=== PATIENT | female | born 1995 | race Caucasian/White ===

== ENCOUNTER → 2020-07-20 10:50 | Outpatient (CLI) | payer OTHER, MEDICAID, SELFPAY | PROVIDERS: Visit Provider Nurse Practitioner | DX: R30.0 Dysuria (principal); R10.9 Unspecified abdominal pain; J02.9 Acute pharyngitis, unspecified | CPT/HCPCS: 87070; 87086 ==

== ENCOUNTER 2020-07-20 12:48 | Emergency (ER) | payer OTHER, MEDICAID, SELFPAY ==
[2020-07-20] VITALS (11 sets, daily range): BP systolic 106–126; BP diastolic 54–66; PULSE 58–109; RESP 18; TEMP 36.9; O2SAT 97–100; BMI 20.5
--- NOTE | 2020-07-20 13:01 | ED_ITS ---
HPI - Abdominal Pain <GAVIOTA Dawson - Last Filed: 07/20/20 16:42> General Chief Complaint: Abdominal Pain Stated Complaint: Left side abd pain, cold symptoms, vomited Time Seen by Provider: 07/20/20 12:51 Source: patient Mode of arrival: Ambulatory Limitations: no limitations History of Present Illness HPI narrative: This is a 25 year female, former smoker, who has history of ov valdemar cyst and ruptured during and migraine headache presents to ED with chief complain of left upper and lower quadrant pain with nausea and vomiting. Patient reports pain started on her left upper quadrant 4 days ago now it has radiated down to lower abdomen. She reports pain as dull cramps when he started but now is progressively pressure-like. She smoke marijuana to is done nausea today. Patient reports pain increases by pressure and touching. She has been nauseated and had stomach acid mixed emesis at 4:00 a.m. after head half of sausage burrito at [facility]. Patient was sweaty and had chills last night. Patient reports urinary urgency and had to actually push to urinate last couple of days. Appears to be pink in color. LMP 2 weeks ago. Patient denies unusual vaginal discharge and is not concerned for STIs. full-term delivery and last delivery with 2 years ago. Related Data Home Medications Medication Instructions Recorded Confirmed methylphenidate HCl 18 mg 18 mg PO .prn tab 07/20/20 07/20/20 tablet,extended release 24 hr Previous Rx's Medication Instructions Recorded hydrocodone-acetaminophen [[place]] 1 tab PO Q8H PRN #10 tab 07/20/20 ondansetron 4 mg PO Q8H PRN #7 tab 07/20/20 ondansetron 4 mg disintegrating 4 mg PO Q6H PRN #14 tab 07/20/20 tablet Allergies Allergy/AdvReac Type Severity Reaction Status Date / Time diphenhydramine AdvReac Intermediate Verified 07/20/20 11:07 [From Ya] Review of Systems <GAVIOTA Dawson - Last Filed: 07/20/20 16:42> Review of Systems Narrative: General: HPI HEENT: Denies sinus pain, ear pain, sore throat, difficulty swallowing, dizziness. Respiratory: Denies dyspnea, cough, wheezing, hemoptysis, sputum. Cardiovascular: Denies chest pain, palpitations, orthopnea, edema. Gastrointestinal: CHP a : See HPI Musculoskeletal: Denies weakness, joint pain or bony pain. Skin: Denies rash, skin lesions, or other. Neurologic: Denies weakness, headache, numbness, change in speech, confusion, seizures, incoordination. Psychiatric: No concerning psychosocial issues. 12-point review of systems is negative except for those stated above. Patient History <GAVIOTA Dawson - Last Filed: 07/20/20 16:42> Medical History (Updated 07/20/20 @ 14:54 by GAVIOTA Dawson) COVID-19 virus infection (Acute) Migraine headache (Acute) Ovarian cyst (Acute) Ruptured ovarian cyst (Acute) Surgical History History of (Acute) Social History Smoking Status: Former smoker Smoking Status: Former smoker Substance Use Type: marijuana Exam <GAVIOTA Dawson - Last Filed: 07/20/20 16:42> Narrative Exam Narrative: GEN: Alert, oriented x 3 and nourished, and moderate distress from pain, in tears during exam. Head: Normal cephalic, atraumatic. No scalp or temporal tenderness, palpable mass or rash. EYES: Pupils are equal, round, and reactive to light and accommodation. Extraocular muscles are intact bilaterally. There is no subconjunctival hemorrhage, exudate and sclera non-icteric. ENT: Hearing grossly intact. Nose without bleeding, purulent discharge or deviation. Mucous membrane moist, no mucosal lesion. Throat without erythema, tonsillar hypertrophy or exudate. Uvula in midline, airway patent. Neck: Trachea in midline. No JVD, non-tender without lymphadenopathy. No masses or thyroid megaly. Supple, non-tender and no meningeal signs. CARDIAC: Normal regular rate and rhythm without murmurs, gallops, or rubs. No chest wall tenderness. No peripheral edema, cyanosis or pallor. Capillary refill is less than 2 seconds. RESPIRATORY: Lungs are clear to auscultate bilaterally. No cough, wheezes, rales, or rhonchi. No stridor, respiratory distress, increase work of br eathing, or accessary muscle used. ABD: Abdomen soft and non-distended. Exquisite tenderness to palpate in left upper and lower quadrant, right upper quadrant. Bowel sounds are normal in all 4 quadrants. There is no palpable masses or organomegaly. EXT: Full painless ROM of all extremities with no loss of sensation, strength, effusion or edema. SKIN: Warm, dry, normal color for patient. No erythema, lesions or rash over visible areas. BACK: Nontender without deformity or crepitance. Left flank pain to percuss NEUROLOGICAL: Alert and oriented to place, time and person. Sensation and motor function intact bilaterally. No facial droops, dysphasia. PSYCHIATRIC: Good judgement and reason, without hallucinations, abnormal affect or abnormal behaviors during the examination. Patient is not suicidal. Initial Vital Signs Initial Vital Signs: Vital Signs Temperature 98.4 F 07/20/20 12:54 Pulse Rate 92 H 07/20/20 12:54 Respiratory Rate 18 07/20/20 12:54 Blood Pressure 126/62 07/20/20 12:54 Pulse Oximetry 98 07/20/20 12:54 <Laura Seymour DO - Last Filed: 07/20/20 17:54> Initial Vital Signs Initial Vital Signs: Vital Signs Temperature 98.4 F 07/20/20 12:54 Pulse Rate 92 H 07/20/20 12:54 Respiratory Rate 18 07/20/20 12:54 Blood Pressure 126/62 07/20/20 12:54 Pulse Oximetry 98 07/20/20 12:54 Scores <GAVIOTA Dawson - Last Filed: 07/20/20 16:42> GCS [place] coma scale eye opening: Spontaneous [place] coma scale verbal response: Orientated [place] coma scale motor response: Obey commands [place] coma scale total score: 15 qSOFA Altered Mental Status (GCS <15): No Respiratory rate greater than/equal to 22: No Systolic blood pressure less than or equal to 100: No qSOFA Total: 0 0-1 Not High Risk 1-3 High risk Course <GAVIOTA Dawson - Last Filed: 07/20/20 16:42> Orders Ordered: ED Orders 07/20/20 12:56 Complete Blood Count AUTO DIFF Stat Comprehensive Metabolic Panel Stat Lactate (Lactic Acid) Stat Lipase Stat 07/20/20 13:28 CT abdomen pelvis w con Stat Discontinued Medications Hydromorphone HCl (Dilaudid) 0.5 mg IV NOW ONE Stop: 07/20/20 14:35 Last Admin: 07/20/20 14:38 Dose: 0.5 mg Documented by: SARA Sodium Chloride (Normal Saline 0.9%) 1,000 mls @ 1,000 mls/hr IV BOLUS ONE Stop: 07/20/20 13:57 Last Infusion: 07/20/20 13:58 Dose: 0 mls/hr Documented by: Admin: 07/20/20 13:02 Dose: 1,000 mls/hr Documented by: SARA Ketorolac Tromethamine (Toradol) 15 mg IV NOW ONE Stop: 07/20/20 13:29 Last Admin: 07/20/20 13:35 Dose: 15 mg Documented by: SARA Ondansetron HCl (Zofran) 4 mg IV NOW ONE Stop: 07/20/20 12:59 Last Admin: 07/20/20 13:02 Dose: 4 mg Documented by: SARA Ondansetron HCl (Zofran) 4 mg IV NOW ONE Stop: 07/20/20 13:55 Last Admin: 07/20/20 13:58 Dose: 4 mg Documented by: SARA Pantoprazole Sodium (Protonix) 40 mg IV NOW ONE Stop: 07/20/20 12:59 Last Admin: 07/20/20 13:02 Dose: 40 mg Documented by: SARA Reevaluation(s) Reevaluation #1: Patient reports pain still remains at 10/10 after the IV Toradol. Discussed CT abd/pelvis findings of ruptured ovarian cyst which is likely a cause of patient's abdominal pain. Patient has a ride and will treat patient's pain with small dose of Dilaudid. Time: 14:35 Reevaluation #2: Patient reports pain much improved and nausea subsided when pain managed well after the Dilaudid medication. Time: 14:50 Consultations Consultation #1: Dr. Rey ([facility]) called to inform that patient has ruptured left-sided ovarian cyst and a dilated left gonadal vein with left paraovarian varicosities suggesting pelvic venous congestion. Time: 14:25 Vital Signs Vital signs: Vital Signs - 8 hr 07/20/20 12:54 07/20/20 12:56 07/20/20 13:00 Temperature 98.4 F Pulse Rate 92 H 88 109 H Respiratory Rate 18 Blood Pressure 126/62 Pulse Oximetry 98 99 99 07/20/20 13:30 07/20/20 13:42 07/20/20 14:00 Temperature 98.4 F Pulse Rate 73 78 81 Respiratory Rate Blood Pressure 114/54 L Pulse Oximetry 98 100 100 07/20/20 14:30 07/20/20 14:43 07/20/20 14:44 Temperature Pulse Rate 73 81 83 Respiratory Rate Blood Pressure 116/66 Pulse Oximetry 99 98 97 07/20/20 15:00 07/20/20 15:01 Temperature Pulse Rate 58 L 64 Respiratory Rate Blood Pressure 106/57 L Pulse Oximetry 98 98 <Laura Seymour, - Last Filed: 07/20/20 17:54> Orders Ordered: ED Orders 07/20/20 12:56 Complete Blood Count AUTO DIFF Stat Comprehensive Metabolic Panel Stat Lactate (Lactic Acid) Stat Lipase Stat 07/20/20 13:28 CT abdomen pelvis w con Stat Discontinued Medications Hydromorphone HCl (Dilaudid) 0.5 mg IV NOW ONE Stop: 07/20/20 14:35 Last Admin: 07/20/20 14:38 Dose: 0.5 mg Documented by: SARA Sodium Chloride (Normal Saline 0.9%) 1,000 mls @ 1,000 mls/hr IV BOLUS ONE Stop: 07/20/20 13:57 Last Infusion: 07/20/20 13:58 Dose: 0 mls/hr Documented by: Admin: 07/20/20 13:02 Dose: 1,000 mls/hr Documented by: SARA Ketorolac Tromethamine (Toradol) 15 mg IV NOW ONE Stop: 07/20/20 13:29 Last Admin: 07/20/20 13:35 Dose: 15 mg Documented by: SARA Ondansetron HCl (Zofran) 4 mg IV NOW ONE Stop: 07/20/20 12:59 Last Admin: 07/20/20 13:02 Dose: 4 mg Documented by: SARA Ondansetron HCl (Zofran) 4 mg IV NOW ONE Stop: 07/20/20 13:55 Last Admin: 07/20/20 13:58 Dose: 4 mg Documented by: SARA Pantoprazole Sodium (Protonix) 40 mg IV NOW ONE Stop: 07/20/20 12:59 Last Admin: 07/20/20 13:02 Dose: 40 mg Documented by: SARA Vital Signs Vital signs: Vital Signs - 8 hr 07/20/20 12:54 07/20/20 12:56 07/20/20 13:00 Temperature 98.4 F Pulse Rate 92 H 88 109 H Respiratory Rate 18 Blood Pressure 126/62 Pulse Oximetry 98 99 99 07/20/20 13:30 07/20/20 13:42 07/20/20 14:00 Temperature 98.4 F Pulse Rate 73 78 81 Respiratory Rate Blood Pressure 114/54 L Pulse Oximetry 98 100 100 07/20/20 14:30 07/20/20 14:43 07/20/20 14:44 Temperature Pulse Rate 73 81 83 Respiratory Rate Blood Pressure 116/66 Pulse Oximetry 99 98 97 07/20/20 15:00 07/20/20 15:01 Temperature Pulse Rate 58 L 64 Respiratory Rate Blood Pressure 106/57 L Pulse Oximetry 98 98 MDM - Abdominal Pain <GAVIOTA Dawson - Last Filed: 07/20/20 16:42> Differential Diagnosis Differential diagnosis: Likely calculus of kidney, diverticulitis, endometriosis, pancreatitis, small bowel obstruction and other (Ovarian cyst, ovarian torsion, pyelonephritis,) Medical Records Attestation: I reviewed the patient's medical records. Lab Data Attestation: I reviewed the patient's lab results. Result diagrams: 07/20/20 12:56 07/20/20 12:56 Labs: Lab Results 07/20/20 07/20/20 07/20/20 Range/Units 12:56 12:56 12:56 WBC 12.2 H (4.5-11.0) X10^3/uL RBC 4.58 (4.0-5.2) X10^6/uL Hgb 12.6 (12.0-16.0) g/dL Hct 38.4 (36-46) % MCV 83.9 (80-100) fL MCH 27.6 (26-34) PG MCHC 32.9 (30-36) % RDW 14.7 (11.6-14.8) % Plt Count 404 H (150-400) X10^3/uL Neut % (Auto) 61.3 (50-75) % Lymph % (Auto) 26.5 (25-40) % [place] % (Auto) 6.8 (3-14) % Eos % (Auto) 4.7 H (2-4) % Baso % (Auto) 0.7 (0-2) % Neut # (Auto) 7500 H (1531-4046) /uL Lymph # (Auto) 3200 (4056-1655) /uL [place] # (Auto) 800 (0-900) /uL Eos # (Auto) 600 H (0-450) /uL Baso # (Auto) 100 (0-100) /uL Sodium 139 (137-145) mmol/L Potassium 3.9 (3.4-5.1) mmol/L Chloride 107 (98-107) mmol/L Carbon Dioxide 26 (22-32) mmol/L BUN 14 (7-17) mg/dL Creatinine 0.73 (0.52-1.04) mg/dL Estimated GFR > 60.0 (>60) mL/min BUN/Creatinine Ratio 19.2 (6-22) Glucose 112 H (70-100) mg/dL Lactate 1.3 (0.7-2.1) mmol/L Calcium 9.3 (8.4-10.2) mg/dL Total Bilirubin 0.6 (0.2-1.3) mg/dL AST 20 (14-36) IU/L ALT 13 (<35) IU/L Alkaline Phosphatase 63 (38-126) U/L Total Protein 7.4 (6.3-8.2) g/dL Albumin 4.3 (3.5-5.0) g/dL Globulin 3.1 (1.7-4.1) g/dL Albumin/Globulin Ratio 1.4 (1.0-2.8) Lipase 129 (23-300) U/L Point of care testing: Point of Care Testing Test Results Negative Urine Dip Bedside Urine Glucose Negative Bedside Urine Bilirubin - Negative Bedside Urine Ketone - Negative Urine Specific [place] 1.020 Bedside Urine Occult Blood - Negative Bedside Urine pH 7.5 Bedside Urine Protein - Negative Bedside Urine Urobilinogen - Negative Bedside Urine Nitrite - Negative Bedside Urine Leukocytes - Negative Esterase Imaging Data CT scan - abdomen/pelvis: Radiologist's Impression: [address] [address] [address] Scan Report Signed Patient: Sonia Mena#: [id number] : 1995Acct:[id number] Age/Sex: 25 / FDate of Service: 07/20/20 Loc: ED Accession Number: [id number] Procedure: CT abdomen pelvis w con Ordering Provider: Manpreet Donahue PROCEDURE: CT ABDOMEN PELVIS W CON INDICATIONS: bilateral upper abd and LLQ pain, n/v TECHNIQUE: After the administration of intravenous contrast, 5 mm thick sections acquired from the diaphragm to the symphysis. 5 mm coronal and sagittal reformats were acquired. For radiation dose reduction, the following was used: automated exposure control, adjustment of mA and/or kV according to patient size. COMPARISON: None. FINDINGS: Image quality: Excellent. ABDOMEN: Lung bases: Lung bases are clear. Heart size is normal. Solid organs: Liver is normal in size and enhancement. Gallbladder is contracted, within normal limits. Biliary system is non dilated. Pancreas enhances normally. Spleen is normal in size and enhancement. No adrenal nodules. Kidneys demonstrate normal size and enhancement, without hydronephrosis. Peritoneum and bowel: Bowel loops demonstrate normal wall thickness and caliber. No free fluid or air. Nodes and vessels: No retroperitoneal or mesenteric adenopathy by size criteria. Aorta and inferior vena cava are normal in size. Miscellaneous: No ventral hernias. PELVIS: Genitourinary: Bladder wall thickness is normal. Miscellaneous: No inguinal hernias or adenopathy. Ruptured enhancing left ovarian cyst with associated fluid in the pelvis. Fluid is greater than physiologic. Note is made of a dilated left gonadal vein indicating reflux with resultant left paraovarian varicosities. Bones: No suspicious bony lesions. No vertebral body compression fractures. IMPRESSION: 1. Left lower quadrant pain is likely related to a ruptured left ovarian cyst with associated probable mild pelvic hemorrhage. 2. Incidental note made of a dilated left gonadal vein with left paraovarian varicosities. This can be associated with a clinical syndrome of pelvic venous congestion Dictated by: Rolando Rey M.D. on 07/20/2020 at 14:15 Approved by: Rolando Rey M.D. on 07/20/2020 at 14:22 [facility] Narrative Medical decision making narrative: This is a 25 year female who has history of several ovarian cysts and 1 episode of rupture ovarian cyst presents to ED with severe left-sided abdominal pain which started 4 days ago with nausea and vomiting. Patient reports chills and sweating last night. Patient reports some urinary symptoms such as difficulty voiding and has to bear down to urinate with possible hematuria the other day. Physical exam appreciated exquisite discomfort in left upper and lower abdomen with left flank pain and right upper quadrant pain. Patient had active nausea and vomiting while in ED. she is afebrile with slight tachycardia of 92 but with normal blood pressure. Mild leukocytosis of 12.2 with very mild elevation in platelet of 404. Normal electrolytes. Stable H&H of 12.6/38.4. Normal lactate. Normal kidney function and liver function test. Urine test does not exhibit signs of infection and urine test was negative. Ultrasound test shows left-sided ovarian cyst rupture with associated probable mild pelvic hemorrhage. Incidental note of dilated left gonadal vein with left para ovarian varicosities which can be associated with clinical syndrome of pelvic venous congestion. Patient's pain and nausea was managed with IV fluid, Toradol and Zofran with very minimal improvement. Patient was medicated with Dilaudid 0.5mg IV and she felt much better on pain and nausea. Findings were discussed with patient and return precautions were discussed with patient. Patient advised to follow-up with primary care physician and possibly a referral to director selection and administration provider if ovarian cyst recurs or has chronic pelvic discomfort from pelvic congestion syndrome. Patient verbalized understanding and agreement with the treatment plan. <Laura Seymour, DO - Last Filed: 07/20/20 17:54> Lab Data Labs: Lab Results 07/20/20 07/20/20 07/20/20 Range/Units 12:56 12:56 12:56 WBC 12.2 H (4.5-11.0) X10^3/uL RBC 4.58 (4.0-5.2) X10^6/uL Hgb 12.6 (12.0-16.0) g/dL Hct 38.4 (36-46) % MCV 83.9 (80-100) fL MCH 27.6 (26-34) PG MCHC 32.9 (30-36) % RDW 14.7 (11.6-14.8) % Plt Count 404 H (150-400) X10^3/uL Neut % (Auto) 61.3 (50-75) % Lymph % (Auto) 26.5 (25-40) % [place] % (Auto) 6.8 (3-14) % Eos % (Auto) 4.7 H (2-4) % Baso % (Auto) 0.7 (0-2) % Neut # (Auto) 7500 H (0694-1834) /uL Lymph # (Auto) 3200 (2086-8892) /uL [place] # (Auto) 800 (0-900) /uL Eos # (Auto) 600 H (0-450) /uL Baso # (Auto) 100 (0-100) /uL Sodium 139 (137-145) mmol/L Potassium 3.9 (3.4-5.1) mmol/L Chloride 107 (98-107) mmol/L Carbon Dioxide 26 (22-32) mmol/L BUN 14 (7-17) mg/dL Creatinine 0.73 (0.52-1.04) mg/dL Estimated GFR > 60.0 (>60) mL/min BUN/Creatinine Ratio 19.2 (6-22) Glucose 112 H (70-100) mg/dL Lactate 1.3 (0.7-2.1) mmol/L Calcium 9.3 (8.4-10.2) mg/dL Total Bilirubin 0.6 (0.2-1.3) mg/dL AST 20 (14-36) IU/L ALT 13 (<35) IU/L Alkaline Phosphatase 63 (38-126) U/L Total Protein 7.4 (6.3-8.2) g/dL Albumin 4.3 (3.5-5.0) g/dL Globulin 3.1 (1.7-4.1) g/dL Albumin/Globulin Ratio 1.4 (1.0-2.8) Lipase 129 (23-300) U/L Point of care testing: Point of Care Testing Test Results Negative Urine Dip Bedside Urine Glucose Negative Bedside Urine Bilirubin - Negative Bedside Urine Ketone - Negative Urine Specific [place] 1.020 Bedside Urine Occult Blood - Negative Bedside Urine pH 7.5 Bedside Urine Protein - Negative Bedside Urine Urobilinogen - Negative Bedside Urine Nitrite - Negative Bedside Urine Leukocytes - Negative Esterase Discharge Plan Departure Patient Disposition: Home Clinical Impression: Ovarian cyst rupture Nausea & vomiting Qualifiers: Vomiting type: unspecified Vomiting Intractability: non-intractable Qualified Code(s): R11.2 - Nausea with vomiting, unspecified Discharge Date/Time: 07/20/20 15:30 Instructions: DI for Ovarian Cyst Activity Restrictions/Additional Instructions: You have been diagnosed with [left-sided ovarian cyst rupture and pelvic congestion her ultrasound test. Your blood count is stable today and vital signs are also stable. You were treated with anti nausea medication, pain medications and fluid in ED.]. What to do: *Take your medications as directed. Please take [id number] Tylenol and or Motrin as needed for discomfort. Tylenol 650 mg up to 3 to 4 times a day as needed for pain. Ibuprofen 400 mg to 600 mg up to 3 times a day as needed for pain with food to decrease GI irritation. You can take additional 1 tab of Nor co only for severe pain which is narcotic pain medication. This can cause drowsiness and constipation so please take precautions such as not driving, drinking alcohol, or operating heavy equipments. Please increase oral fluid intake and fiber in her diet. You can take [id number] stool softener to prevent constipation. You can take on then stone/Zofran as needed for nausea. These medications have been transmitted to [facility]. *Follow up with your primary care provider in 2-3 days, call for an appointment. Let them know you were seen in the ED and that we asked you to be seen in follow up. *Return to ED if you have any new, worsening, or concerning symptoms, such as [w orsening pain, chest pain, breathing difficulty, lightheadedness, feeling like faint, fever or any acute concerns]. Prescriptions: New hydrocodone-acetaminophen [[place]] 5-325 mg tablet 1 tab PO Q8H PRN (Reason: pain) Qty: 10 RF: 0 ondansetron 4 mg tablet,disintegrating 4 mg PO Q8H PRN (Reason: nausea and vomiting) Qty: 7 RF: 0 No Action methylphenidate HCl [[place]] 18 mg tablet extended release 24hr 18 mg PO .prn RF: 0 ondansetron 4 mg tablet,disintegrating 4 mg PO Q6H PRN (Reason: nausea and vomiting) Qty: 14 RF: 0 Referrals: [facility] Resources [Outside] Miscellaneous,Doctor, [Primary Care Provider] - <Laura Seymour DO - Last Filed: 07/20/20 17:54> Cosign ED Attending Cosignature Attestation: I was immediately available in the department for consultation. Documentation has been reviewed. I agree with assessment and plan.
[2020-07-20] MEDS: SODIUM CHLORIDE 0.9% 1,000 ML 1000 ML IV (13:02)
[2020-07-20] MEDS: PANTOPRAZOLE 40 MG VIAL IV (13:02)
[2020-07-20] MEDS: ONDANSETRON 4 MG/2 ML INJ IV ×2 (13:02→13:58)
[2020-07-20 13:08] LABS: Add Manual Diff / Slide Review NO; Basophils Absolute Auto 100 /uL (0-100); Basophils Percent Auto 0.7 % (0-2); Eosinophils Absolute Auto 600 /uL (0-450); Eosinophils Percent Auto 4.7 % (2-4); Hematocrit 38.4 % (36-46); Hemoglobin 12.6 g/dL (12.0-16.0); Lymphocytes Absolute Auto 3200 /uL (1100-4500); Lymphocytes Percent Auto 26.5 % (25-40); Mean Corpuscular HGB Conc 32.9 % (30-36); Mean Corpuscular Hemoglobin 27.6 PG (26-34); Mean Corpuscular Volume 83.9 fL (80-100); Monocytes Absolute Auto 800 /uL (0-900); Monocytes Percent Auto 6.8 % (3-14); Neutrophils Absolute Auto 7500 /uL (1500-7000); Neutrophils Percent Auto 61.3 % (50-75); Platelet Count 404 X10^3/uL (150-400); Red Blood Cell Count 4.58 X10^6/uL (4.0-5.2); Red Cell Distribution Width 14.7 % (11.6-14.8); White Blood Cell Count 12.2 X10^3/uL (4.5-11.0)
[2020-07-20 13:13] LABS: Lactate (Lactic Acid) 1.3 mmol/L (0.7-2.1)
[2020-07-20 13:24] LABS: Alanine Aminotransferase 13 IU/L (<35); Albumin 4.3 g/dL (3.5-5.0); Albumin Globulin Ratio 1.4 (1.0-2.8); Alkaline Phosphatase 63 U/L (38-126); Aspartate Aminotransferase 20 IU/L (14-36); BUN Creatinine Ratio 19.2 (6-22); Bilirubin Total 0.6 mg/dL (0.2-1.3); Blood Urea Nitrogen 14 mg/dL (7-17); Calcium 9.3 mg/dL (8.4-10.2); Carbon Dioxide 26 mmol/L (22-32); Chloride 107 mmol/L (98-107); Estimated Glomerular Filt Rate > 60.0 mL/min (>60); Globulin 3.1 g/dL (1.7-4.1); Glucose 112 mg/dL (70-100); HEMOLYSIS < 15 (0-50); Lipase 129 U/L (23-300); Potassium 3.9 mmol/L (3.4-5.1); Sodium 139 mmol/L (137-145); Total Protein 7.4 g/dL (6.3-8.2)
--- NOTE | 2020-07-20 13:28 | DI.CT.S_ITS ---
PROCEDURE: CT ABDOMEN PELVIS W CON INDICATIONS: bilateral upper abd and LLQ pain, n/v TECHNIQUE: After the administration of intravenous contrast, 5 mm thick sections acquired from the diaphragm to the symphysis. 5 mm coronal and sagittal reformats were acquired. For radiation dose reduction, the following was used: automated exposure control, adjustment of mA and/or kV according to patient size. COMPARISON: None. FINDINGS: Image quality: Excellent. ABDOMEN: Lung bases: Lung bases are clear. Heart size is normal. Solid organs: Liver is normal in size and enhancement. Gallbladder is contracted, within normal limits. Biliary system is non dilated. Pancreas enhances normally. Spleen is normal in size and enhancement. No adrenal nodules. Kidneys demonstrate normal size and enhancement, without hydronephrosis. Peritoneum and bowel: Bowel loops demonstrate normal wall thickness and caliber. No free fluid or air. Nodes and vessels: No retroperitoneal or mesenteric adenopathy by size criteria. Aorta and inferior vena cava are normal in size. Miscellaneous: No ventral hernias. PELVIS: Genitourinary: Bladder wall thickness is normal. Miscellaneous: No inguinal hernias or adenopathy. Ruptured enhancing left ovarian cyst with associated fluid in the pelvis. Fluid is greater than physiologic. Note is made of a dilated left gonadal vein indicating reflux with resultant left paraovarian varicosities. Bones: No suspicious bony lesions. No vertebral body compression fractures. IMPRESSION: 1. Left lower quadrant pain is likely related to a ruptured left ovarian cyst with associated probable mild pelvic hemorrhage. 2. Incidental note made of a dilated left gonadal vein with left paraovarian varicosities. This can be associated with a clinical syndrome of pelvic venous congestion Dictated by: Rolando Rey M.D. on 07/20/2020 at 14:15 Approved by: Rolando Rey M.D. on 07/20/2020 at 14:22
[2020-07-20] MEDS: KETOROLAC 60 MG/2 ML VIAL 15 MG IV (13:35)
[2020-07-20] MEDS: HYDROMORPHONE 0.5 MG INJ IV (14:38)
== END 2020-07-20 15:30 | disposition home or self-care (01) ==
PROVIDERS: Emergency Provider Nurse Practitioner Family
DX: N83.209 Unspecified ovarian cyst, unspecified side (principal); R11.2 Nausea with vomiting, unspecified; F12.99 Cannabis use, unspecified with unspecified cannabis-induced disorder; R39.15 Urgency of urination; R79.89 Other specified abnormal findings of blood chemistry; R30.0 Dysuria; R10.9 Unspecified abdominal pain; J02.9 Acute pharyngitis, unspecified
CPT/HCPCS: 36415; 74177; 80053; 81003; 81025; 83605; 83690; 85025; 87070; 87086; 96361; 96374; 96375; 96376; 99284; C9113; J1170; J1885; J2405